=== PATIENT | male | born 1980 | race Caucasian/White ===

== ENCOUNTER 2016-09-28 00:59 | Emergency (ER) | payer MEDICARE, OTHER ==
[~2016-09-28] VITALS: Ht 182.9 cm; Wt 102.0 kg
[~2016-09-28 00:59] MED LIST: DEPA250T2 PO; GABA300C3 PO; OXYC10 PO; PHEN100 PO; RANI150 PO; ZOFR4TAB3 SL
[2016-09-28 01:03] VITALS: BP 156/75; PULSE 88; RESP 16; TEMP 98.3; O2SAT 97
[2016-09-28] MEDS ORDERED: GABA600T PO (02:07)
--- NOTE | 2016-09-28 02:09 | PD ---
HPI Chief Complaint: Musculoskeletal Complaint Time Seen by Provider: 02:06 Travel History International Travel<30 days: No Contact w/Intl Traveler<30days: No Traveled to known affect area: No History of Present Illness HPI Patient comes in complaining of right low back pain that began yesterday morning when bending over to pickup his son. Patient has been having sharp burning pain in his right low back since that is radiating down his right lower extremity. Patient been taking [id number] pain medication as well as pain patches with minimal to no relief of symptoms. Pain is worse with certain movement and walking. Patient denies anything like this in the past. Denies any fevers, IV drug use, numbness or tingling anywhere, loss or change in bowel or bladder, or trauma. PFSH Past Medical History Arthritis: No Asthma: No Autoimmune Disease: No Blood Disorders: No Bipolar Disorder: Yes Anxiety: Yes Depression: Yes Cancer: No Cardiac Catheterization: Yes Cardiovascular Problems: No High Cholesterol: Yes Chemotherapy: No Chest Pain: No Congestive Heart Failure: No COPD: No Cerebrovascular Accident: No Diabetes: No Diminished Hearing: No Endocrine: No Gastrointestinal Disorders: Yes (POLYPS IN COLON. ) GERD: No Glaucoma: No Genitourinary: No Headaches: Yes (CLUSTER HEADACHES) Hepatitis: No Hypertension: No Immune Disorder: No Kidney Stones: No Musculoskeletal: Yes (DEGENERATIVE DISC DISEASE L4-L5) Neurologic: Yes ("HX OF COMA 3 DAYS SECONDARY TO HEAD INJ 2 YEARS AGO ) Psychiatric: Yes Reproductive: No Respiratory: No Immunizations Current: No Myocardial Infarction: Yes Pancreatitis: Yes Radiation Therapy: No Renal Failure: Yes (RESOLVED) Schizophrenia: Yes Seizures: Yes Sickle Cell Disease: No Sleep Apnea: No Thyroid Disease: No Ulcer: Yes Past Surgical History Abdominal Surgery: No AICD: No Appendectomy: No Arteriovenous Shunt: No Cardiac Surgery: Yes (CARDIAC CATH 03/26) Cholecystectomy: No Ear Surgery: No Endocrine Surgery: No Eye Surgery: No Genitourinary Surgery: No Gynecologic Surgery: No Insulin Pump: No Joint Replacement: No Neurologic Surgery: Yes (UNKNOWN HEAD OR BRAIN SURGERY AFTER TRAUMATIC INJURY) Oral Surgery: Yes (UPPER PLATE) Pacemaker: No Thoracic Surgery: No Other Surgery: No Social History Alcohol Use: No (HX OF) Tobacco Use: Yes (1 PPD) Substance Use: No (DENIES) Allergies-Medications (Allergen,Severity, Reaction): Coded Allergies: Haldol (Verified Allergy, Severe, Anaphylaxis, 09/28/16) Codeine (Verified Allergy, Mild, Itching, 09/28/16) Reported Meds & Prescriptions Reported Meds & Active Scripts Active Robaxin (Methocarbamol) 500 Mg Tab 500 Mg PO Q8HR PRN Medrol Dosepak (Methylprednisolone) 4 Mg Dspk 4 Mg PO DIRECTED Per Pharmacist direction Reported Gabapentin 600 Mg Tab 600 Mg PO TID Review of Systems Except as stated in HPI: all other systems reviewed are Neg Physical Exam Narrative GENERAL: Well-developed, overly nourished, in no acute distress, and non-ill appearing. SKIN: Warm and dry. HEAD: Atraumatic. Normocephalic. EYES: Pupils equal and round. EOMI. No scleral icterus. No injection or drainage. ENT: No nasal bleeding or discharge. Mucous membranes pink and moist. NECK: Trachea midline. Supple. No nuclear rigidity. RESPIRATORY: No accessory muscle use. No respiratory distress. GASTROINTESTINAL: Abdomen soft, non-tender, nondistended. Hepatic and splenic margins not palpable. No pulsatile mass. MUSCULOSKELETAL: No obvious deformities. No clubbing. No cyanosis. No edema. Full range of motion. No tenderness or crepitus over midline lumbar spine. Patient reports tenderness to palpation near right SI joint. NEUROLOGICAL: Awake and alert. No obvious cranial nerve deficits. Motor grossly within normal limits. Normal speech. PSYCHIATRIC: Appropriate mood and affect; insight and judgment normal. Data Data Last Documented VS Vital Signs Date Time Temp Pulse Resp B/P Pulse Ox O2 Delivery O2 Flow Rate FiO2 09/28/16 02:08 14 09/28/16 01:03 98.3 88 156/75 97 Room Air Orders Dexamethasone Inj (Decadron Inj) (09/28/16 02:15) Methocarbamol (Robaxin) (09/28/16 02:15) [facility] Medical Decision Making Medical Screen Exam Complete: Yes Emergency Medical Condition: Yes Differential Diagnosis Fracture, strain, contusion, sciatica, other Narrative Course The patient presented complaining of back pain with radiation down leg. There was no history of recent fall or trauma. There was no evidence to support genitourinary etiology. There is also no evidence to suggest vascular pathology such as AAA dissection. No fevers or other evidence to suspect infectious processes, abscess, osteomyelitis etc. The patients neurological exam is normal with normal motor and sensory. There is no saddle paresthesias reported and no bowel or bladder incontinence or retention. I suspect the pain is mechanical in nature with sciatica. Clinical suspicion, plan of care and management was discussed with the patient. The patient was instructed to follow up with their health care provider. The patient was also instructed to return if the pain worsened, changed, or developed weakness or bowel or bladder trouble. The patient agreed with plan. Patient in no obvious distress upon re-evaluation. Patient was asked if they wanted to speak to my attending, which the patient did not wish to do at this time. Any questions/concerns in reference to patient diagnosis/condition discussed and clarified prior to patient's discharge. Reinforced sheer importance of close follow up with patient's primary physician or primary care clinic. Instructed patient to return to ED immediately, if symptoms return/ worsen. Pt showed understanding of above instructions. Further instructions and recommendations were detailed in discharge paperwork. Pt ambulated without difficulty out of ED at discharge. Diagnosis Primary Impression: Sciatica of right side Referrals: Gonzalez Tidwell Jr., MD Patient Instructions: General Instructions, Sciatica (ED) Additional Instructions: Follow-up with your primary care physician and/or orthopedics in 2-3 days for evaluation. Take all medication as prescribed. Return to the emergency department if symptoms get worse. Med/Other Pt SpecificInfo: Prescription(s) given Scripts Methocarbamol (Robaxin)500 Mg [id number] Mg PO Q8HR PRN (MUSCLE PAIN) #15 TAB Ref 0 Prov:Jonel Tao MD 09/28/16 Methylprednisolone Dosepak (Medrol Dosepak)4 Mg Dspk4 Mg PO DIRECTED #1 DSPK Ref 0 Per Pharmacist direction Prov:Jonel Tao MD 09/28/16 Disposition: 01 DISCHARGE HOME Condition: Stable Montez Vieira Sep 28, 2016 02:09
[2016-09-28] MEDS ORDERED: ROBA500T PO (02:10)
[2016-09-28] MEDS ORDERED: MEDR4PAK PO (02:10)
[2016-09-28] MEDS ORDERED: DEXAMETHASONE SOD PHOS 4 MG/ML VIAL IM ONE (02:15)
[2016-09-28] MEDS ORDERED: METHOCARBAMOL 500 MG TAB PO ONE (02:15)
== END 2016-09-28 02:40 | disposition home or self-care (01) ==
LOC: NEPB 00:59
DX: M54.31 Sciatica, right side (principal); E78.00 Pure hypercholesterolemia, unspecified; I25.2 Old myocardial infarction; F17.210 Nicotine dependence, cigarettes, uncomplicated
CPT/HCPCS: 96372; 99283; J1100

== ENCOUNTER 2016-10-08 21:37 | Emergency (ER) | payer MEDICARE, OTHER ==
[~2016-10-08] VITALS: Ht 182.9 cm; Wt 102.0 kg
[~2016-10-08 21:37] MED LIST changes: -DEPA250T2 PO; -GABA300C3 PO; +GABA600T PO; +MEDR4PAK PO; -OXYC10 PO; -PHEN100 PO; -RANI150 PO; +ROBA500T PO; -ZOFR4TAB3 SL
[2016-10-08 21:39] VITALS: BP 139/72; PULSE 80; RESP 18; TEMP 98.2; O2SAT 98
[2016-10-08] MEDS ORDERED: LYRI75CA PO (22:19)
--- NOTE | 2016-10-08 22:23 | PD ---
HPI Chief Complaint: Injury Time Seen by Provider: 22:18 Travel History International Travel<30 days: No Contact w/Intl Traveler<30days: No Traveled to known affect area: No History of Present Illness HPI Patient comes in complaining of pain over his first metatarsal phalangeal joint on his left foot that began yesterday while walking. Patient denies any known trauma, numbness or tingling, fevers, or previous episodes like this. He states pain is worse with walking. Patient denies doing anything for this. Denies anything making the pain better. Pain is sharp stabbing like in nature without radiation. PFSH Past Medical History Arthritis: No Asthma: No Autoimmune Disease: No Blood Disorders: No Bipolar Disorder: Yes Anxiety: Yes Depression: Yes Cancer: No Cardiac Catheterization: Yes Cardiovascular Problems: No High Cholesterol: Yes Chemotherapy: No Chest Pain: No Congestive Heart Failure: No COPD: No Cerebrovascular Accident: No Diabetes: No Diminished Hearing: No Endocrine: No Gastrointestinal Disorders: Yes (POLYPS IN COLON. ) GERD: No Glaucoma: No Genitourinary: No Headaches: Yes (CLUSTER HEADACHES) Hepatitis: No Heparin Induced Thrombocytopen: No Hypertension: No Immune Disorder: No Kidney Stones: No Musculoskeletal: Yes (DEGENERATIVE DISC DISEASE L4-L5) Neurologic: Yes ("HX OF COMA 3 DAYS SECONDARY TO HEAD INJ 2 YEARS AGO ) Psychiatric: Yes Reproductive: No Respiratory: No Immunizations Current: No Myocardial Infarction: Yes Pancreatitis: Yes Radiation Therapy: No Renal Failure: Yes (RESOLVED) Schizophrenia: Yes Seizures: Yes Sickle Cell Disease: No Sleep Apnea: No Thyroid Disease: No Ulcer: Yes Past Surgical History Abdominal Surgery: No AICD: No Appendectomy: No Arteriovenous Shunt: No Cardiac Surgery: Yes (CARDIAC CATH 03/26) Cholecystectomy: No Ear Surgery: No Endocrine Surgery: No Eye Surgery: No Genitourinary Surgery: No Gynecologic Surgery: No Insulin Pump: No Joint Replacement: No Neurologic Surgery: Yes (UNKNOWN HEAD OR BRAIN SURGERY AFTER TRAUMATIC INJURY) Oral Surgery: Yes (UPPER PLATE) Pacemaker: No Thoracic Surgery: No Other Surgery: No Social History Alcohol Use: No (HX OF) Tobacco Use: Yes (1 PPD) Substance Use: No (DENIES) Allergies-Medications (Allergen,Severity, Reaction): Coded Allergies: Haldol (Verified Allergy, Severe, Anaphylaxis, 10/08/16) Codeine (Verified Allergy, Mild, Itching, 10/08/16) Reported Meds & Prescriptions Reported Meds & Active Scripts Active Medrol Dosepak (Methylprednisolone) 4 Mg Dspk 4 Mg PO DIRECTED Per Pharmacist direction Reported Lyrica (Pregabalin) 75 Mg Cap 75 Mg PO DAILY Review of Systems Except as stated in HPI: all other systems reviewed are Neg Physical Exam Narrative GENERAL: Well-developed, overly nourished, in no acute distress, and non-ill appearing. SKIN: Warm and dry. There is no erythematous, induration, fluctuation, or crepitus appreciated. HEAD: Atraumatic. Normocephalic. EYES: Pupils equal and round. EOMI. No scleral icterus. No injection or drainage. ENT: No nasal bleeding or discharge. Mucous membranes pink and moist. NECK: Trachea midline. Supple. No nuclear rigidity. CARDIOVASCULAR: Dorsal pulses 2+, intact, equal bilaterally. Capillary refill less than 2 seconds. RESPIRATORY: No accessory muscle use. No respiratory distress. MUSCULOSKELETAL: No obvious deformities. No clubbing. No cyanosis. No edema. Full range of motion. Patient reports tenderness to palpation of her first metatarsal phalangeal joint left lower extremity. Sensation intact over first web space bilateral lower extremities. Strength 5 out of 5 and equal with plantar and dorsiflexion bilaterally. Range of motion and equal of toes bilaterally. NEUROLOGICAL: Awake and alert. No obvious cranial nerve deficits. Motor grossly within normal limits. Normal speech. PSYCHIATRIC: Appropriate mood and affect; insight and judgment normal. Data Data Last Documented VS Vital Signs Date Time Temp Pulse Resp B/P Pulse Ox O2 Delivery O2 Flow Rate FiO2 10/08/16 22:20 14 Room Air 10/08/16 21:39 98.2 80 139/72 98 Orders Toe (Min 2vws) (10/08/16 ) Splint Or Brace Apply/Monitor (10/08/16 23:00) Shoe Cast (10/08/16 ) MDM Medical Decision Making Medical Screen Exam Complete: Yes Emergency Medical Condition: Yes Differential Diagnosis Fracture, strain, gout, pseudogout, other Narrative Course There is no clinical evidence for fracture. There is no clinical evidence to suspect bony injury by exam. Radiographic examination revealed no fracture seen at this time. No obvious ligamental injury or internal derangement is noted at this time. The distal extremity appears neurovascularly intact, without evidence of neurovascular injury nor compartment syndrome. Tendon exam also was intact. The effected limb was splinted. The patient was discharged with sprain instructions and given warnings for vascular compromise. The patient is to follow up with tower watchman. The patient agrees with plan. Patient in no obvious distress upon re-evaluation. All pertinent Radiology result(s) discussed with patient. Patient is requesting something stronger than ibuprofen for pain as he states he is unable to take secondary to having a history of pancreatitis. Patient was informed that Tylenol along with the prescription of steroids as well as using ice should be sufficient for his pain if he is in need of something stronger he can obtain this from his primary care doctor or tower watchman on Tuesday. Patient was asked if they wanted to speak to my attending, which the patient did not wish to do at this time. Any questions/ concerns in reference to patient diagnosis/condition discussed and clarified prior to patient's discharge. Reinforced sheer importance of close follow up with patient's primary physician or primary care clinic and/or tower watchman. Instructed patient to return to ED immediately, if symptoms return/worsen. Pt showed understanding of above instructions. Further instructions and recommendations were detailed in discharge paperwork. Pt ambulated without difficulty out of ED at discharge. Diagnosis Primary Impression: Sprain of metatarsophalangeal joint of left great toe, initial encounter Referrals: Clifton Jiang DPM Patient Instructions: General Instructions, Sprain (ED) Additional Instructions: Follow-up with your primary care physician and/or podiatry in 2-3 days reevaluation. Take all medication as prescribed. Apply ice to affected area 20 minutes prior as needed for pain. Wear postop shoe for comfort until reevaluated. Return to the emergency department if symptoms get worse. Med/Other Pt SpecificInfo: Prescription(s) given Scripts Methylprednisolone Dosepak (Medrol Dosepak)4 Mg Dspk4 Mg PO DIRECTED #1 DSPK Ref 0 Per Pharmacist direction Prov:Ewa Gutierrez MD 10/08/16 Disposition: 01 DISCHARGE HOME Condition: Stable Montez Vieira Oct 08, 2016 22:23
[2016-10-08] MEDS ORDERED: MEDR4PAK PO (22:52)
--- NOTE | 2016-10-08 22:55 | RADRPT ---
EXAM DATE/TIME: 10/08/2016 22:43 [facility] COMPARISON: No previous studies available for comparison. INDICATIONS : Left foot, great toe pain. MEDICAL HISTORY : None. SURGICAL HISTORY : None. ENCOUNTER: Initial ACUITY: 2 days PAIN SCORE: 10/10 LOCATION: medial side of great toe. FINDINGS: Examination of the first digit of the left foot demonstrates no evidence of fracture or dislocation. No radiopaque foreign bodies are seen. The soft tissues are intact. CONCLUSION: Unremarkable examination of left first toe. Stefan Boyer MD on October 08, 2016 at 22:53 Board Certified Radiologist. This report was verified electronically.
== END 2016-10-08 23:07 | disposition home or self-care (01) ==
LOC: NEPB 21:37
DX: S93.522A Sprain of metatarsophalangeal joint of left great toe, initial encounter (principal); X58.XXXA Exposure to other specified factors, initial encounter; Y93.01 Activity, walking, marching and hiking; Y92.9 Unspecified place or not applicable; F17.210 Nicotine dependence, cigarettes, uncomplicated
CPT/HCPCS: 73660; 99283; L3260